=== PATIENT | female | born 1960 | race Hispanic/Latino ===

== ENCOUNTER → 2025-04-18 | Outpatient (REF) | payer MEDICARE ==
[~2025-04-18] MED LIST: IOPAMIDOL 370 MG/ML 100 ML INFUS..BTL INJ ONE; NITROGLYCERIN 0.4 MG SUBL ONE; SODIUM CHLORIDE 0.9% 100 ML ONE
[2025-04-18 10:05] LABS: EST GLOMERULAR FILTRATION RATE 98.0 ML/MIN (>=60)
== END ==
LOC: CT 09:01
PROVIDERS: ATTEND Internal Medicine Cardiovascular Disease
DX: I20.9 Angina pectoris, unspecified (principal); R94.39 Abnormal result of other cardiovascular function study
CPT/HCPCS: 36415; 75574; 82565; 84520; J7050; Q9967